=== PATIENT | male | born 1970 | race Caucasian/White ===

== ENCOUNTER 2016-03-28 17:28 | Inpatient (IN) | payer OTHER ==
--- NOTE | 2016-03-28 18:09 | EDPHY ---
H & P Time Seen by Provider: 03/28/16 18:08 HPI/ROS: CHIEF COMPLAINT: Vomiting and abdominal pain HISTORY OF PRESENT ILLNESS: This 45-year-old man started having symptoms for a.m. on . He had some nausea and vomiting and some abdominal discomfort but took Advil and was able to ski with clients on Wednesday at [place]. He had some recurrent nausea and vomiting on the chair lift. He had more nausea and vomiting last night at home with some stringy red stuff and today presents with continued nausea, lower abdominal pain, and an episode of black stool at 4:00 p.m. Pain is [id number] in not better worse with anything. Does not radiate. No hematemesis or coffee-ground emesis. REVIEW OF SYSTEMS: Eye: no change in vision ENT: no sore throat Cardiac: no chest pain or syncope Pulmonary: no cough or SOB Abdomen: HPI Musculoskeletal: He does have back pain, does have a previous injury, thinks he might have aggravated it skiing. Skin: no rash Neuro: no headache Constitutional: no fever : no urinary symptoms A comprehensive 10 point review of systems is otherwise negative aside from elements mentioned in the history of present illness. PAST MEDICAL HISTORY: Possible history of an ulcer at age 20 but no endoscopy and no x-ray testing. Thumb surgery, kidney stones, back pain. Social history: Occasional alcohol only General Appearance: Alert and conversant, cooperative. Eyes: No scleral icterus. ENT, Mouth: Normal mucous membranes. Respiratory: Normal respiratory effort, breath sounds equal, lungs are clear to auscultation. Cardiovascular: Regular rate and rhythm. Gastrointestinal: Right lower quadrant tenderness to palpation, no hernia, normal male . Rectal exam shows brown stool sent for Hemoccult. Neurological: Alert and oriented x3. Normally conversant. Face symmetric, normal movement and sensation in all extremities. Skin: Warm and dry, no rashes. Musculoskeletal: No peripheral edema and no joint swelling. Psychiatric: Not agitated. Emergency Department course/MDM: Fentanyl 100 mcg IV, Zofran 4 mg IV, normal saline [address] scanning discussed and consented to evaluate for appendicitis or diverticulitis. 1945: Results discussed, plan for admission for supportive care. In light of the patient's Hemoccult-positive stool but brown and not melena, and is normal hemoglobin and hematocrit, I think this is more likely [place]- [place] or bleeding from is duodenitis and not likely acute severe upper GI bleed or ulcer. Smoking Status: Never smoked Constitutional: Initial Vital Signs Temperature (C) 37 C 03/28/16 17:35 Heart Rate 63 03/28/16 17:35 Respiratory Rate 18 03/28/16 17:35 Blood Pressure 139/96 H 03/28/16 17:35 O2 Sat (%) 96 03/28/16 17:35 O2 Delivery Mode Nasal Cannula O2 (L/minute) 2 Allergies/Adverse Reactions: No Known Allergies Allergy (Unverified 03/28/16 17:36) Home Medications: Medication Instructions Recorded Herbals/Supplements -Info Only 1 ea PO DAILY 03/28/16 Ibuprofen [Motrin (*)] 400 mg PO BID PRN 03/28/16 METHOCARBAMOL [METHOCARBAMOL] 750 mg PO TID PRN 03/28/16 Medical Decision Making - Diagnostics Imaging: CT reviewed by myself and discussed with Dr. De Jesus at 7:40 p.m. shows duodenitis but no other abnormality. Differential Diagnosis: Differential for vomiting and abdominal pain considered including but not limited to appendicitis, gastroenteritis, GI bleed, bowel obstruction Consult/Admit Bed Type: [place] [id number] - Data Points Laboratory Results: Laboratory Results 03/28/16 18:03 03/28/16 18:03 03/28/16 18:03 WBC 11.99 H 10^3/uL (3.80-9.50) RBC 5.46 10^6/uL (4.40-6.38) Hgb 16.4 g/dL (13.7-17.5) Hct 46.8 % (40.0-51.0) MCV 85.7 fL (81.5-99.8) MCH 30.0 pg (27.9-34.1) MCHC 35.0 g/dL (32.4-36.7) RDW 12.6 % (11.5-15.2) Plt Count 219 10^3/uL (150-400) MPV 10.6 fL (8.7-11.7) Neut % (Auto) 73.5 % (39.3-74.2) Lymph % (Auto) 17.4 % (15.0-45.0) [place] % (Auto) 8.1 % (4.5-13.0) Eos % (Auto) 0.4 L % (0.6-7.6) Baso % (Auto) 0.3 % (0.3-1.7) Nucleat RBC Rel Count 0.0 % (0.0-0.2) Absolute Neuts (auto) 8.81 H 10^3/uL (1.70-6.50) Absolute Lymphs (auto) 2.09 10^3/uL (1.00-3.00) Absolute Monos (auto) 0.97 H 10^3/uL (0.30-0.80) Absolute Eos (auto) 0.05 10^3/uL (0.03-0.40) Absolute Basos (auto) 0.04 10^3/uL (0.02-0.10) Absolute Nucleated RBC 0.00 10^3/uL (0-0.01) Immature Gran % 0.3 % (0.0-1.1) Immature Gran # 0.03 10^3/uL (0.00-0.10) Sodium 140 mEq/L (134-144) Potassium 4.2 mEq/L (3.5-5.2) Chloride 105 mEq/L (97-110) Carbon Dioxide 22 mEq/l (22-31) Anion Gap 13 mEq/L (8-16) BUN 21 mg/dL (7-23) Creatinine 0.8 mg/dL (0.7-1.3) Estimated GFR > 60 Glucose 91 mg/dL (70-100) Calcium 9.3 mg/dL (8.5-10.4) Total Bilirubin 2.7 H mg/dL (0.1-1.4) Conjugated Bilirubin 0.6 H mg/dL (0.0-0.5) Unconjugated Bilirubin 2.1 H mg/dL (0.0-1.1) AST 33 IU/L (17-59) ALT 32 IU/L (21-72) Alkaline Phosphatase 76 IU/L (38-126) Total Protein 7.7 g/dL (6.3-8.2) Albumin 4.1 g/dL (3.5-5.0) Lipase 49.0 IU/L (23-300) Stool Occult Bld Scrn POSITIVE H (NEGATIVE) Medications Given: Discontinued Medications Fentanyl (Sublimaze) 100 mcg IVP EDNOW ONE Stop: 03/28/16 18:37 Last Admin: 03/28/16 18:38 Dose: 100 mcg Sodium Chloride (Ns) 1,000 mls @ 0 mls/hr IV ONCE ONE PRN Reason: Wide Open Stop: 03/28/16 18:16 Last Admin: 03/28/16 18:22 Dose: 1,000 mls Ondansetron HCl (Zofran) 4 mg IVP EDNOW ONE Stop: 03/28/16 18:16 Last Admin: 03/28/16 18:23 Dose: 4 mg Departure - Departure Disposition: [facility] Inpatient Acute Clinical Impression: Acute duodenitis Condition: Good
[2016-03-28] MEDS ORDERED: ONDANSETRON 4 MG/2 ML VIAL ONE (18:11)
[2016-03-28] MEDS ORDERED: ONDANSETRON 4 MG/2 ML VIAL IVP ONE (18:15)
[2016-03-28] MEDS ORDERED: NS 1,000 ML IV ONE ×2 (18:15→20:31)
[2016-03-28] MEDS ORDERED: fentaNYL 100 MCG/2 ML INJ IVP ONE ×2 (18:26→18:36)
[2016-03-28] MEDS ORDERED: fentaNYL 100 MCG/2 ML INJ ONE (18:26)
[2016-03-28 18:38] LABS: % IMMATURE GRANULYOCYTES 0.3 % (0.0-1.1); ABSOLUTE IMMATURE GRANULOCYTES 0.03 10^3/uL (0.00-0.10); ADD DIFF? NO; ADD MORPH? NO; ADD SCAN? NO; ATYPICAL LYMPHOCYTE FLAG 0 (0-99); FRAGMENT RBC FLAG 0 (0-99); HEMATOCRIT 46.8 % (40.0-51.0); HEMOGLOBIN 16.4 g/dL (13.7-17.5); LEFT SHIFT FLG 0 (0-99); LIPEMIA HEMOLYSIS FLAG 90 (0-99); MEAN CELL VOLUME 85.7 fL (81.5-99.8); MEAN PLATELET VOLUME 10.6 fL (8.7-11.7); PLATELET CLUMPS FLAG 0 (0-99); PLATELET COUNT 219 10^3/uL (150-400); RED BLOOD CELL COUNT 5.46 10^6/uL (4.40-6.38); RED CELL DISTRIBUTION WIDTH 12.6 % (11.5-15.2)
[2016-03-28 18:59] LABS: ALANINE AMINOTRANSFERASE 32 IU/L (21-72); ALBUMIN 4.1 g/dL (3.5-5.0); ALKALINE PHOSPHATASE 76 IU/L (38-126); ANION GAP 13 mEq/L (8-16); ASPARTATE AMINOTRANSFERASE 33 IU/L (17-59); BILIRUBIN,TOTAL 2.7 mg/dL (0.1-1.4); BILIRUBIN-CONJUGATED 0.6 mg/dL (0.0-0.5); BILIRUBIN-UNCONJUGATED 2.1 mg/dL (0.0-1.1); CALCIUM 9.3 mg/dL (8.5-10.4); CARBON DIOXIDE 22 mEq/l (22-31); CHLORIDE 105 mEq/L (97-110); CREATININE 0.8 mg/dL (0.7-1.3); GLOMERULAR FILTRATION RATE > 60; GLUCOSE 91 mg/dL (70-100); POTASSIUM 4.2 mEq/L (3.5-5.2); SODIUM 140 mEq/L (134-144); TOTAL PROTEIN 7.7 g/dL (6.3-8.2)
[2016-03-28] MEDS ORDERED: IOPAMIDOL (ISOVUE-300) 100 ML BTL IV ONE (19:06)
--- NOTE | 2016-03-28 19:50 | CT ---
CT Scan of the Abdomen and Pelvis (With Contrast) March 28, 2016 at 1921 Hours Indication: Abdominal pain. Nausea and vomiting with blood for three days. Technique: 99 mL of Isovue 300 were given intravenously by machine power injection. [facility] imaging was performed from the diaphragm to the symphysis pubis. Dose reduction techniques w ere utilized. Findings Abdomen: There is mild nodular infiltrate in both lung bases, more predominant on the right. Decrease d attenuation of the liver suggesting fatty infiltration. Gallbladder is unremarkable. Significant wa ll thickening is seen in the first and second portion of the duodenum with adjacent stranding and als o a small amount in the pylorus. No evidence for free intraperitoneal air. Spleen is unremarkable. Pa ncreas is unremarkable. Both adrenal glands are normal in size and appearance. There is an incidental 1.3 cm renal cortical cyst left kidney. No evidence for renal mass or hydronephrosis. No significant abdominal lymphadenopathy. Pelvis: Appendix is normal in size. No evidence for diverticulitis or small bowel obstruction. No taj dence for bladder calculus. No significant free fluid in the pelvis. Mild degenerative change is seen in the thoracic spine. Impression: 1. Findings suggesting severe duodenitis and probable component of gastritis at the pylorus. No evide nce for free intraperitoneal air. 2. Nodular opacification at both lung bases with the nodular appearance more predominant on the right . Recommend following to clear. This could represent pneumonia or aspiration. 3. Fatty infiltration of the liver. Results called to Dr. Dc Mckeon.
[2016-03-28] MEDS ORDERED: oxyCODONE IR 5 MG TAB PO PRN (20:25)
[2016-03-28] MEDS ORDERED: ONDANSETRON DISINTEGRATING 4 MG TAB PO PRN (20:25)
[2016-03-28] MEDS ORDERED: ONDANSETRON 4 MG/2 ML VIAL IVP PRN (20:25)
[2016-03-28] MEDS ORDERED: LORazepam 2 MG/ML INJ IVP PRN (20:25)
[2016-03-28] MEDS ORDERED: PROMETHAZINE HCL 25 MG/ML INJ IVP PRN (20:25)
[2016-03-28] MEDS ORDERED: ACETAMINOPHEN 325 MG TAB PO PRN (20:25)
[2016-03-28] MEDS ORDERED: NS 1,000 ML IV SCH (20:30)
[2016-03-28] MEDS: HYDROmorphONE/DILAUDID 1 MG/ML SYR IVP PRN (21:05)
--- NOTE | 2016-03-28 21:07 | PDGENHP ---
History and Physical - Chief Complaint abd pain/n/v - History of Present Illness 45 yo M with no significant medical history other than back pain who presents with 2 days of n/v and mid epigastric abdominal pain. He notes that the this began on with some vomiting. He was also having back pain and had taken 800mg of advil on an empty stomach. He felt well enough on Wednesday to go skiing, however the nausea continued and was also associated with worsening abdominal pain. He noted that some of the vomiting was blood tinged. He was unable to eat due to the continued nausea and what he describes as "violent" vomiting. He also began to have dark and tarry stools. He notes that he does not take advil on a regular basis, but does take it from time to time. He does not have issues with chronic heartburn or reflux. He does not recall ever having anything similar to this in the past. At the time of my evaluation, he is quite uncomfortable and very anxious. He notes that his anxiety is largely around this potentially being something bad, as he has a very strong family history for cancer. History Information - Allergies/Home Medication List Allergies/Adverse Reactions: No Known Allergies Allergy (Unverified 03/28/16 17:36) Home Medications: Herbals/Supplements -Info Only 1 ea PO DAILY 03/28/16 [Last Taken Unknown] Ibuprofen [Motrin (*)] 400 mg PO BID PRN 03/28/16 [Last Taken 03/27/16] METHOCARBAMOL [METHOCARBAMOL] 750 mg PO TID PRN 03/28/16 [Last Taken 03/25/16] I have personally reviewed and updated: family history, medical history, social history, surgical history - Past Medical History Additional medical history: chronic back pain. nephrolithiasis - Surgical History Reports: no pertinent surgical hx - Family History Positive for: cancer (multiple family member with colon cancer, father with colon cancer at 48) - Social History Smoking Status: Never smoked Alcohol Use: Occasionally Drug Use: None Additional social history: , 2 children Review of Systems ROS: 10pt was reviewed & negative except for what was stated in HPI & below Physical Exam Temp Pulse Resp BP Pulse Ox 37 C 63 2 L 121/79 H 98 03/28/16 17:35 03/28/16 20:00 03/28/16 20:00 03/28/16 20:00 03/28/16 20:00 Constitutional: appears nourished, uncomfortable Eyes: PERRL, anicteric sclera Ears, Nose, Mouth, Throat: moist mucous membranes Cardiovascular: regular rate and rhythym, no murmur, rub, or gallop, No edema Respiratory: no respiratory distress, no rales or rhonchi, clear to auscultation Gastrointestinal: normoactive bowel sounds, tenderness (mid epigastrium), No guarding, No rebound, No distension Genitourinary: no bladder tenderness Skin: warm, normal color Musculoskeletal: full muscle strength, no muscle tenderness Neurologic: AAOx3 Psychiatric: interacting appropriately, not encephalopathic, anxious Lab Data & Imaging Review 03/28/16 18:03 03/28/16 18:03 WBC 11.99 10^3/uL (3.80-9.50) H 03/28/16 18:03 RBC 5.46 10^6/uL (4.40-6.38) 03/28/16 18:03 Hgb 16.4 g/dL (13.7-17.5) 03/28/16 18:03 Hct 46.8 % (40.0-51.0) 03/28/16 18:03 MCV 85.7 fL (81.5-99.8) 03/28/16 18:03 MCH 30.0 pg (27.9-34.1) 03/28/16 18:03 MCHC 35.0 g/dL (32.4-36.7) 03/28/16 18:03 RDW 12.6 % (11.5-15.2) 03/28/16 18:03 Plt Count 219 10^3/uL (150-400) 03/28/16 18:03 MPV 10.6 fL (8.7-11.7) 03/28/16 18:03 Neut % (Auto) 73.5 % (39.3-74.2) 03/28/16 18:03 Lymph % (Auto) 17.4 % (15.0-45.0) 03/28/16 18:03 [place] % (Auto) 8.1 % (4.5-13.0) 03/28/16 18:03 Eos % (Auto) 0.4 % (0.6-7.6) L 03/28/16 18:03 Baso % (Auto) 0.3 % (0.3-1.7) 03/28/16 18:03 Nucleat RBC Rel Count 0.0 % (0.0-0.2) 03/28/16 18:03 Absolute Neuts (auto) 8.81 10^3/uL (1.70-6.50) H 03/28/16 18:03 Absolute Lymphs (auto) 2.09 10^3/uL (1.00-3.00) 03/28/16 18:03 Absolute Monos (auto) 0.97 10^3/uL (0.30-0.80) H 03/28/16 18:03 Absolute Eos (auto) 0.05 10^3/uL (0.03-0.40) 03/28/16 18:03 Absolute Basos (auto) 0.04 10^3/uL (0.02-0.10) 03/28/16 18:03 Absolute Nucleated RBC 0.00 10^3/uL (0-0.01) 03/28/16 18:03 Immature Gran % 0.3 % (0.0-1.1) 03/28/16 18:03 Immature Gran # 0.03 10^3/uL (0.00-0.10) 03/28/16 18:03 Sodium 140 mEq/L (134-144) 03/28/16 18:03 Potassium 4.2 mEq/L (3.5-5.2) 03/28/16 18:03 Chloride 105 mEq/L (97-110) 03/28/16 18:03 Carbon Dioxide 22 mEq/l (22-31) 03/28/16 18:03 Anion Gap 13 mEq/L (8-16) 03/28/16 18:03 BUN 21 mg/dL (7-23) 03/28/16 18:03 Creatinine 0.8 mg/dL (0.7-1.3) 03/28/16 18:03 Estimated GFR > 60 03/28/16 18:03 Glucose 91 mg/dL (70-100) 03/28/16 18:03 Calcium 9.3 mg/dL (8.5-10.4) 03/28/16 18:03 Total Bilirubin 2.7 mg/dL (0.1-1.4) H 03/28/16 18:03 Conjugated Bilirubin 0.6 mg/dL (0.0-0.5) H 03/28/16 18:03 Unconjugated Bilirubin 2.1 mg/dL (0.0-1.1) H 03/28/16 18:03 AST 33 IU/L (17-59) 03/28/16 18:03 ALT 32 IU/L (21-72) 03/28/16 18:03 Alkaline Phosphatase 76 IU/L (38-126) 03/28/16 18:03 Total Protein 7.7 g/dL (6.3-8.2) 03/28/16 18:03 Albumin 4.1 g/dL (3.5-5.0) 03/28/16 18:03 Lipase 49.0 IU/L (23-300) 03/28/16 18:03 Stool Occult Bld Scrn POSITIVE (NEGATIVE) H 03/28/16 18:03 Visualized and Interpreted imaging results: Yes Interpretation: abd CT with severe duodenitis and gastitis as well as bilateral nodular opacites in lung bases Assessment & Plan Assessment: Acute duodenitis (Acute) 45 yo M pw n/v/abd pain found to have severe duodenitis on ct # duodenitis: with likely associated gastritis as well, noted on CT imaging to be severe. Unclear etiology--with such abrupt onset query infectious etiology such as viral duodenitis, but other etiologies including malignancy also a possibility. Reviewed with GI, plan for EGD in the am. Will treat conservatively for now with IVF, IV PPI, IV antiemetics, pain medications. NPO after midnight. # nodular opacities: noted on CT abd to have bilateral lower lobe nodular opacities. Does not report any respiratory sxs. Could be related to aspiration given recurrent n/v recently. Will get CXR to further characterize and monitor. Holding off on abx for now. # gi bleed: reporting blood tinged vomit and dark stools with hemoccult + stool in ER. Does not have a brisk bleed and h/h currently normal. As above. # leukocytosis: likely stress response, will trend. Afebrile currently, however if develops fever would tx for presumed aspiration pna # dispo: observation status, will likely need < 48 hours stay for eval/mgmt of above however pending clinical course Pt new to my care. Old records reviewed and summarized as above. Care plan reviewed with GI including plans for EGD in am. Further hx obtained from patients present at bedside.
[2016-03-28] MEDS: PANTOPRAZOLE SODIUM 40 MG in NS 100 ML IV SCH (21:17)
[2016-03-28] MEDS: LORazepam 2 MG/ML INJ IVP PRN (21:21)
--- NOTE | 2016-03-28 22:17 | DX ---
Chest, PA and lateral. History: Nodular opacity seen lower chest recent CT abdomen. Evaluate for pneumonia. Comparison: CT abdomen and pelvis performed earlier today. Findings: The nodular opacity seen in the right lung bases subtly seen posteriorly in the posterior s ulcus on the PA view. The small nodular density in the left lung bases not visualized. No other findi ngs for air space consolidation in either lung. Heart size is within normal limits. Pulmonary vascula rity appears normal. No evidence for pleural effusion. Impression: The nodular densities seen in the lung bases appear isolated with no other findings for p neumonia in the lungs. This could be infectious or inflammatory or aspiration. Recommend following to clear to exclude mass.
[2016-03-29] MEDS: HYDROmorphONE/DILAUDID 1 MG/ML SYR IVP PRN ×2 (03:39→12:32)
[2016-03-29 05:41] LABS: % IMMATURE GRANULYOCYTES 0.3 % (0.0-1.1); ABSOLUTE IMMATURE GRANULOCYTES 0.03 10^3/uL (0.00-0.10); ADD DIFF? NO; ADD MORPH? NO; ADD SCAN? NO; ATYPICAL LYMPHOCYTE FLAG 10 (0-99); FRAGMENT RBC FLAG 0 (0-99); HEMATOCRIT 40.8 % (40.0-51.0); HEMOGLOBIN 14.1 g/dL (13.7-17.5); LEFT SHIFT FLG 0 (0-99); LIPEMIA HEMOLYSIS FLAG 90 (0-99); MEAN CELL HEMOGLOBIN 31.1 pg (27.9-34.1); MEAN CELL HEMOGLOBIN CONCENTR. 34.6 g/dL (32.4-36.7); MEAN CELL VOLUME 90.1 fL (81.5-99.8); MEAN PLATELET VOLUME 10.7 fL (8.7-11.7); PLATELET CLUMPS FLAG 0 (0-99); PLATELET COUNT 161 10^3/uL (150-400); RED BLOOD CELL COUNT 4.53 10^6/uL (4.40-6.38); RED CELL DISTRIBUTION WIDTH 12.5 % (11.5-15.2)
[2016-03-29 05:58] LABS: ALANINE AMINOTRANSFERASE 24 IU/L (21-72); ALBUMIN 3.3 g/dL (3.5-5.0); ALKALINE PHOSPHATASE 57 IU/L (38-126); ANION GAP 6 mEq/L (8-16); ASPARTATE AMINOTRANSFERASE 16 IU/L (17-59); BILIRUBIN,TOTAL 2.2 mg/dL (0.1-1.4); BILIRUBIN-CONJUGATED 0.4 mg/dL (0.0-0.5); BILIRUBIN-UNCONJUGATED 1.8 mg/dL (0.0-1.1); CALCIUM 8.2 mg/dL (8.5-10.4); CARBON DIOXIDE 25 mEq/l (22-31); CHLORIDE 108 mEq/L (97-110); CREATININE 0.8 mg/dL (0.7-1.3); GLOMERULAR FILTRATION RATE > 60; GLUCOSE 90 mg/dL (70-100); POTASSIUM 3.9 mEq/L (3.5-5.2); SODIUM 139 mEq/L (134-144); TOTAL PROTEIN 6.4 g/dL (6.3-8.2)
[2016-03-29] MEDS: PANTOPRAZOLE SODIUM 40 MG in NS 100 ML IV SCH (08:33)
[2016-03-29] MEDS ORDERED: fentaNYL 100 MCG/2 ML INJ ONE ×2 (09:19→09:49)
[2016-03-29] MEDS ORDERED: MIDAZOLAM 2 MG/2 ML VIAL ONE ×2 (09:19→09:58)
[2016-03-29] MEDS ORDERED: EPINEPHrine 1 MG/10 ML SYR IVP ONE (09:20)
[2016-03-29] MEDS ORDERED: NALOXONE HCL 0.4 MG/ML INJ ONE (09:20)
[2016-03-29] MEDS ORDERED: FLUMAZENIL 0.5 MG/5 ML MDV IVP ONE (09:20)
--- NOTE | 2016-03-29 10:15 | GCON ---
[f rep st] CONSULTATION GI INPATIENT CONSULTATION. DATE OF CONSULTATION: 03/29/2016 I was requested to see the patient by Dr. Smart. The patient is a pleasant , 45-year-old, white male I am asked to see in consultation for a chief complaint of abdominal pain. Three days ago, he developed acute epigastric abdominal pain along with nausea and vomiting. He had some back pain with this as well. With some of his vomiting, he noticed it to be "blood tinged." He had decreased oral intake, due to the above symptoms. He also began to notice some dark and tarry stools. In general, he does not take nonsteroidals on a regular basis, but just as needed. He did take recently some 800 mg of Advil, but only after feeling sick. He denies heartburn. PAST MEDICAL HISTORY: 1. As above. 2. Chronic back pain. 3. Past history apparently of kidney stones. 4. Otherwise, noncontributory. OUTPATIENT MEDICATIONS: As above. INPATIENT MEDICATIONS: Pantoprazole 40 mg IV twice a day and IV fluids. SOCIAL HISTORY: He is . His 's name is Odilia. Her cell phone number is [phone]. FAMILY HISTORY: Negative for similar abdominal pain. REVIEW OF SYSTEMS: Positive pertinent review of systems as per my HPI. Otherwise, his review of systems is negative for a total of 10 systems. Of note , in 2012, he did undergo a colonoscopy, received 150 mcg of fentanyl and 7 mg of Versed, for an apparent family history of colon cancer in his dad. This was normal. PHYSICAL EXAM: GENERAL: A nontoxic-appearing gentleman. VITAL SIGNS: Stable. SKIN: Warm and dry. HEENT: Pupils equal, round, reactive to light and accommodation. Oropharynx without masses, moist mucosa. NECK: Without thyromegaly, no lymphadenopathy. HEART: Normal S2, normal PMI. LUNGS: Clear to auscultation and percussion anteriorly. ABDOMEN: Relatively nontender, with no rebound. RECTAL: Deferred. EXTREMITIES: Without cyanosis or clubbing. NEUROLOGIC: Grossly nonfocal. Cranial nerves grossly intact. Orientation, insight appropriate. MUSCULOSKELETAL: strength is grossly normal throughout. Normal station. LABORATORIES: CT scan of the abdomen and pelvis with IV contrast that shows severe duodenitis and some gastritis in the area of the pylorus. Fatty liver. Normal pancreas. White count on admission close to 12,000, now at 9000. Normal hematocrit. Total bilirubin 2.2, almost all unconjugated. Otherwise, normal liver tests, lipase. Normal basic metabolic panel. ASSESSMENT: 1. Acute epigastric pain, nausea, vomiting. With this and the CT scan findings , suspect an acute viral gastroenteritis. Other causes of gastritis are possible, but less likely. Peptic ulcer disease is possible. A malignant process, such as lymphoma is possible, but less likely. 2. Mildly elevated unconjugated bilirubin. Suspect Gilbert's syndrome only. PLAN: 1. Urgent upper endoscopy. 2. Further management depending on the above. Thank you for allowing me to help in the care of this patient. /[id number]/MODL MTDD
--- NOTE | 2016-03-29 11:10 | GPN ---
[f rep st] PROCEDURE NOTE DATE OF PROCEDURE: 03/29/2016 PROCEDURE: Upper endoscopy with biopsy. PRE-PROCEDURE DIAGNOSIS: Epigastric abdominal pain, with a CT scan showing duodenitis. POSTPROCEDURE DIAGNOSIS: Duodenitis. PREMEDICATION: Fentanyl 250 mcg IV, Versed 9 mg IV. COMPLICATIONS: None. FINDINGS: After informed consent was obtained, the patient was placed in the left lateral decubitus position. Video upper endoscope was placed under direct visualization and advanced. The esophagus was normal, except for some mild irritation just above the GE junction from vomiting. Stomach was normal. The duodenal bulb and 1st portion had multiple duodenal erosions, nonbleeding, with a white exudate. Biopsies were performed. Moderately severe in nature. Biopsies also done of the antrum and cardia of the stomach for H pylori. IMPRESSION: Moderately severe duodenitis, as above. Almost certainly, this is viral in nature, with a limited viral gastroenteritis of this area. This is based both on the appearance, but also his acute history of abdominal pain, nausea, vomiting. He does use 2 packets of Emergen-C every morning routinely; a side effect vitamin C is possible, but less likely. Suspect the above will totally resolve with time, as well as short term acid suppressive therapy. PLAN: 1. We will let him eat. 2. Would continue IV PPI for now. However, once he is feeling better, this can be changed to an oral PPI; as per the hospitalist service. Upon discharge , would recommend a generic oral PPI twice a day for 2 weeks, then once a day for 1 month, then stop. 3. Would recommend stopping his routine use of Emergen-C every morning. I will sign off. I will follow up on his biopsies, including for H pylori, and contact the patient and his primary care physician if positive. Otherwise, please contact me if we can be of further help. Thank you for allowing me to help in the care of this patient. /[id number]/MODL MTDD
--- NOTE | 2016-03-29 16:09 | HOSPPROG ---
Hospitalist Progress Note Assessment/Plan: 45 yo M with no sig pmh presenting with abd pain/n/v found to be 2/2 acute duodenitis # acute duodenitis: appreciate GI input and pt now s/p EGD with biopsies performed and pending. Appeared most c/w viral gastroenteritis limited to his duodenum by egd. Plan is for supportive care with IVF, pain meds, antiemetics and PPI. Pt will need bid PPI 40mg x 1 month, then daily 40mg x 1 month then off. # abd pain/n/v: 2/2 above, improved on current regimen # elevated bilirubin: isolated abnormality c/w Gilbert's # dispo: IP status, will need > 48 hours stay for eval/mgmt of above given multiple active issues and severity of sxs Reviewed care plan with GI. Further hx obtained and care plan reviewed with patients present at bedside. Subjective: no significant overnight events, patient now s/p egd, feeling better but sleepy s/p egd Objective: Vital Signs Temp Pulse Resp BP Pulse Ox 36.7 C 56 L 18 118/79 100 03/29/16 15:58 03/29/16 15:58 03/29/16 15:58 03/29/16 15:58 03/29/16 15:58 Laboratory Results 03/29/16 04:33 03/29/16 04:33 03/28/16 03/29/16 03/30/16 05:59 05:59 05:59 Intake Total 1000 500 Balance 1000 500 awake alert nad anicteric op clear rrr no mrg cta b soft nt nd no cce warm dry well perfused oriented appropriate ICD10 Worksheet Patient Problems: Problems Problem Status Diagnosed Acute duodenitis Acute
[2016-03-29] MEDS: PANTOPRAZOLE SODIUM 40 MG TAB PO SCH (20:08)
[2016-03-30 02:57] VITALS: RESP 18
[2016-03-30] MEDS: LORazepam 2 MG/ML INJ IVP PRN (03:00)
[2016-03-30 07:35] VITALS: BP 110/77; PULSE 70; TEMP 98; O2SAT 97
[2016-03-30] MEDS: PANTOPRAZOLE SODIUM 40 MG TAB PO SCH (10:26)
--- NOTE | 2016-03-30 10:52 | PDDCSUM ---
Discharge Summary Discharge Summary: DISCHARGE SUMMARY FOLLOW-UP ITEMS: Biopsy results pending at time of discharge DATE OF ADMISSION: 03/28/2016 DATE OF DISCHARGE: 03/30/2016 DISCHARGE DIAGNOSES: 1. Acute duodenitis 2. Acute abdominal pain nausea and vomiting 3. Suspected Gilbert's syndrome CONSULTATIONS: Gastroenterology PROCEDURES / IMAGING: Upper endoscopy CHIEF COMPLAINT: Acute abdominal pain nausea and vomiting SUBJECTIVE: Patient is feeling well at time of discharge, he is somewhat anxious, does have some residual abdominal discomfort in the mid epigastric area which is relieved supportively with medications offered PHYSICAL EXAM ON DISCHARGE: Systolic blood pressure is 130, heart rate 70, afebrile overnight, or negative orthostatics, abdominal tenderness to palpation in the mid epigastric area without any guarding, bowel sounds are present LABS ON DISCHARGE: Hemoglobin 14.1, white blood cell count 9100, platelets [id number], BUN 18, creatinine 0.8, potassium 3.9, bilirubin 2.2, fecal occult blood positive HOSPITAL COURSE BY PROBLEM: 1. Acute duodenitis. Patient presented with abdominal symptoms secondary to acute duodenitis most likely secondary to either viral gastroenteritis versus nonsteroidal anti-inflammatory medication use. He underwent upper endoscopy and this confirmed the diagnosis. Biopsies were sent. It was recommended that the patient will continue on proton pump inhibitor twice daily for 1 month then once daily thereafter. I recommend that he follow up with Gastroenterology in 1 week to reassess symptoms and discuss biopsy results. 2. Acute nausea vomiting and abdominal pain. Most likely secondary to above, patient was provided with supportive pain medications and antiemetics at time of discharge. The seem to be controlling his symptoms. 3. Suspected Gilbert's syndrome. Indirect hyperbilirubinemia most likely secondary to acute illness. DISCHARGE MEDICATIONS: Please see official discharge medication reconciliation sheet in chart , pantoprazole 40 mg twice daily, oxycodone immediate release 5-10 mg as needed 20 tabs prescribed, Zofran 4 mg as needed 40 tablets prescribed, Ativan 0.5 mg at bedtime as needed 10 tablets prescribed, Maalox as needed, Tums as needed. DISCHARGE INSTRUCTIONS: Patient should follow up with Gastroenterology in 1 week. And he should avoid nonsteroidal anti-inflammatory medications. TIME SPENT: Greater than 30 minutes were spent on direct patient care, as well as discharge planning and preparation.
== END 2016-03-30 11:39 | disposition home or self-care (01) | DRG 392 ==
LOC: F3E 20:50 → OBSVTOIN 03-29 16:12
PROVIDERS: ADMIT Internal Medicine; ATTEND Internal Medicine
PROC: 0DB68ZX Excision of Stomach, Via Natural or Artificial Opening Endoscopic, Diagnostic (ICD-10-PCS; principal; 2016-03-29 09:33)
PROC: 0DB98ZX Excision of Duodenum, Via Natural or Artificial Opening Endoscopic, Diagnostic (ICD-10-PCS; principal; 2016-03-29 09:33)
DX: K29.80 Duodenitis without bleeding (principal); E80.4 Gilbert syndrome; K29.00 Acute gastritis without bleeding; K76.0 Fatty (change of) liver, not elsewhere classified; R91.8 Other nonspecific abnormal finding of lung field; M54.5 Low back pain; Z87.442 Personal history of urinary calculi; Z80.0 Family history of malignant neoplasm of digestive organs
CPT/HCPCS: 96374; G0378; J1170; J2250; J2310; J2405; J3010; Q9967